=== PATIENT | female | born 1970 | race American Indian/Alaskan Native ===

== ENCOUNTER 2019-09-28 23:11 | Emergency (ER) | payer OTHER ==
--- NOTE | 2019-09-29 00:34 | XRay Report ---
CHEST 2 VIEWS INDICATION / CLINICAL INFORMATION: chestpain. COMPARISON: None available. FINDINGS: SUPPORT DEVICES: None. HEART / MEDIASTINUM: No significant abnormality. LUNGS / PLEURA: No significant pulmonary or pleural abnormality. No pneumothorax. ADDITIONAL FINDINGS: No significant additional findings. IMPRESSION: 1. No acute findings. Signer Name: Efrain Reyes MD Signed: 09/29/2019 12:29 AM Workstation Name: [id number]
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
[2019-09-29] MEDS ORDERED: ONDANSETRON 4 MG/2 ML INJ IV ONE (01:08)
[2019-09-29] MEDS ORDERED: MORPHINE 4 MG/1 ML INJ IV ONE (01:08)
[2019-09-29] MEDS ORDERED: TETANUS,DIPH,PERTUSS(ACELL) VACCINE 0.5 ML SYRINGE IM ONE (01:09)
[2019-09-29] MEDS ORDERED: LIDOCAINE (1%) 10 MG/1 ML VIAL 20 ML MDV INFILTRATI ONE (01:09)
[2019-09-29 01:52] LABS: Basophils # (Auto) 0.1 K/mm3 (0.0-0.1); Basophils % (Auto) 0.5 % (0.0-1.8); Eosinophils # (Auto) 0.2 K/mm3 (0.0-0.4); Eosinophils % (Auto) 1.4 % (0.0-4.3); Lymphocytes # (Auto) 1.5 K/mm3 (1.2-5.4); Lymphocytes % (Auto) 13.7 % (13.4-35.0); Mean Corpuscular HGB Conc 30 % (30-34); Mean Corpuscular Volume 71 fl (79-97); Monocytes # (Auto) 0.8 K/mm3 (0.0-0.8); Monocytes % (Auto) 7.5 % (0.0-7.3); Platelet Count 344 K/mm3 (140-440); Red Blood Count 4.81 M/mm3 (3.65-5.03); Red Cell Distribution Width 19.2 % (13.2-15.2)
[2019-09-29 01:54] LABS: Hemoglobin 10.3 gm/dl (10.1-14.3)
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
[2019-09-29 02:06] LABS: INR 1.04 (0.87-1.13)
[2019-09-29 02:07] LABS: Partial Thromboplastin Time 30.6 Sec. (24.2-36.6)
[2019-09-29 02:11] LABS: BUN/Creatinine Ratio 11; Blood Urea Nitrogen 10 mg/dL (7-17); Calcium 8.6 mg/dL (8.4-10.2); Hemolysis Index 2
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
[2019-09-29] MEDS ORDERED: ceFAZolin/Water 2 GM/20 ML 2 GM/20 ML SYRINGE IV NR (03:00)
[2019-09-29 03:55] VITALS: BP 114/85
== END 2019-09-29 04:50 | disposition other institution (70) ==
LOC: ED 23:11
DX: S52.021B Displaced fracture of olecranon process without intraarticular extension of right ulna, initial encounter for open fracture type I or II (principal); S22.31XA Fracture of one rib, right side, initial encounter for closed fracture; M25.561 Pain in right knee; M79.674 Pain in right toe(s); J45.909 Unspecified asthma, uncomplicated; F17.200 Nicotine dependence, unspecified, uncomplicated; Z98.890 Other specified postprocedural states; Z91.013 Allergy to seafood; V29.9XXA Motorcycle rider (driver) (passenger) injured in unspecified traffic accident, initial encounter; Y93.89 Activity, other specified; Y92.89 Other specified places as the place of occurrence of the external cause; Y99.8 Other external cause status
CPT/HCPCS: 29105; 36415; 71046; 71275; 73080; 73562; 73630; 80048; 85025; 85610; 85730; 90471; 90715; 93005; 93010; 96374; 96375; 99285; J0690; J2270; J2405; Q9967